=== PATIENT | female | born 1965 | race Caucasian/White ===

== ENCOUNTER 2019-11-01 01:12 | Emergency (ER) | payer BC ==
[2019-11-01 01:27] VITALS: BP 127/74
--- NOTE | 2019-11-01 04:14 | ER Document Report ---
ED Extremity Problem, Upper - General Chief Complaint: Shoulder Pain Stated Complaint: SHOULDER PAIN Time Seen by Provider: 11/01/19 02:33 Primary Care Provider: ADWOA RODRIGUEZ PA-C [Primary Care Provider] - Follow up in 3-5 days Notes: Patient is a 55-year-old female who presents the emergency department with a chief complaint of right shoulder pain. Patient states that her symptoms started this evening. States that she has had this before and was diagnosed with bursitis. States that she was treated with pain medicine and it got better. States that this was a long time ago. Patient states that she has a h istory of rheumatoid arthritis. She was told to stop her rheumatoid arthritis medication, as she has cancer and is undergoing chemotherapy. Patient has small cell lung cancer. Patient is able to move her elbow joint and move her fingers with no difficulty. Patient states that she took an oxycodone, but had little relief of her pain. TRAVEL OUTSIDE OF THE [place] IN LAST 30 DAYS: No - Related Data Allergies/Adverse Reactions: No Known Allergies Allergy (Unverified 07/07/12 12:52) Past Medical History - General Information source: Patient - Social History Smoking Status: Unknown if Ever Smoked Chew tobacco use (# tins/day): No Frequency of alcohol use: None Drug Abuse: None Family History: Reviewed & Not Pertinent Patient has homicidal ideation: No - Past Medical History Cardiac Medical History: Reports: Hx Hypertension - medicated Denies: Hx Heart Attack Pulmonary Medical History: Denies: Hx Asthma Neurological Medical History: Denies: Hx Cerebrovascular Accident, Hx Seizures GI Medical History: Denies: Hx Hepatitis, Hx Hiatal Hernia, Hx Ulcer Musculoskeletal Medical History: Reports Hx Arthritis - RA Infectious Medical History: Denies: Hx Hepatitis Past Surgical History: Denies: Hx Hysterectomy, Hx Mastectomy, Hx Open Heart Surgery, Hx Pacemaker Review of Systems - Review of Systems Notes: REVIEW OF SYSTEMS: CONSTITUTIONAL : Denies recent illness. Denies recent unintentional weight loss. Denies fever, chills, or sweats. EENT: Denies eye, ear, throat, or mouth pain, discharge, or symptoms. Denies nasal or sinus congestion. CARDIOVASCULAR: Denies chest pain. RESPIRATORY: Denies shortness of breath, cough, congestion, difficulty breathing, or wheezing. GASTROINTESTINAL: Denies nausea, vomiting, and diarrhea. Denies abdominal pain. Denies constipation. GENITOURINARY: Denies difficulty urinating, burning, blood in urine, urgency or frequency. MUSCULOSKELETAL: Denies neck and back pain. See HPI. SKIN: Denies rash, itchiness, or lesions HEMATOLOGIC : Denies easy bruising or bleeding. LYMPHATIC: Denies swollen, painful, enlarged glands. NEUROLOGICAL: Denies no numbness or tingling denies weakness. Denies headache. Denies altered mental status. Denies alteration in speech. PSYCHIATRIC: Denies stress, anxiety, alteration in sleep patterns, or depression. All other systems reviewed and negative. Physical Exam - Vital signs Vitals: Temp Pulse Resp BP Pulse Ox 98.2 F 113 H 16 127/74 H 96 11/01/19 01:25 11/01/19 01:25 11/01/19 01:25 11/01/19 01:25 11/01/19 01:25 - Notes Notes: PHYSICAL EXAMINATION: GENERAL: Appears well, healthy, well-nourished, no acute distress. HEAD: Normocephalic, atraumatic. EYES: PERRL, conjunctiva normal, all extraocular movements intact, sclera nonicteric ENT: Moist mucous membranes. NECK: Supple, no noticeable swelling, redness, rash. Normal range of motion. LUNGS: Equal breath sounds bilaterally and clear to auscultation. No wheezes rales or rhonchi. CARDIOVASCULAR: S1-S2, regular rate, regular rhythm. Radial pulses 2+, normal. ABDOMEN: Normoactive bowel sounds. Soft, nontender, no guarding, no rebound tenderness, and no masses palpated. EXTREMITIES: Decreased range of motion to right shoulder joint due to pain. NEUROLOGICAL: Moves all extremities upon command. Strength 5/5 in all ext remities. PSYCH: Normal mood, normal affect. SKIN: Warm, dry. No rash, lesions, ulcerations noted. Normal skin turgor. Course - Re-evaluation Re-evalutation: 11/01/19 05:38 Patient has mild degenerative spurring of the right acromioclavicular joint. There is no fracture. 11/01/19 06:09 Patient states that she feels better after receiving Dilaudid. I will send her home with oxycodone to help with her pain. 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 She is in agreement with this plan. Patient placed in a sling. Follow-up precautions were given. Verbal discharge instructions were given to the patient. They verbalized understanding. They are stable for discharge. - Vital Signs Vital signs: Temp Pulse Resp BP Pulse Ox 98.2 F 113 H 16 127/74 H 96 11/01/19 01:25 11/01/19 01:25 11/01/19 01:25 11/01/19 01:25 11/01/19 01:25 Discharge - Discharge Clinical Impression: Right shoulder pain Qualifiers: Chronicity: acute Qualified Code(s): M25.511 - Pain in right shoulder Condition: Stable Disposition: HOME, SELF-CARE Additional Instructions: You were seen today in the emergency department for right shoulder pain. You have some bone spurs noted on your x-ray. Use your sling to help with comfort. You can take your pain medication as prescribed. Follow-up with your primary care provider in regards to this visit. Prescriptions: Oxycodone HCl/Acetaminophen [Percocet 5-325 mg Tablet] 1 tab PO Q4H PRN #10 tablet PRN Reason: Referrals: ADWOA RODRIGUEZ PA-C [Primary Care Provider] - Follow up in 3-5 days
--- NOTE | 2019-11-01 04:20 | RADIOLOGY REPORT (SQ) ---
RIGHT SHOULDER RADIOGRAPHS: 11/01/2019 3:19 AM CDT TECHNIQUE: AP and Y views of the right shoulder were obtained. COMPARISON: None available HISTORY: 54-year old patient with right shoulder pain . FINDINGS: The visualized portions of the right hemithorax appear unremarkable. There is mild degenerative spurring at the right acromioclavicular joint. There are no findings to suggest an acute fracture of the right shoulder. The visualized portions of the right clavicle demonstrate no evidence of an acute fracture. The visualized soft tissues appear unremarkable. A right internal jugular [id number] catheter tip projects near the SVC/right atrial junction. IMPRESSION: There are no findings to suggest an acute fracture of the right shoulder.
[2019-11-01] MEDS ORDERED: KETOROLAC TROMETHAMINE 60 MG/2 ML SDV IM ONE (04:35)
[2019-11-01] MEDS ORDERED: DEXAMETHASONE SOD PHOS INJ 10 MG/1 ML VIAL IM ONE (04:36)
[2019-11-01] MEDS ORDERED: DEXAMETHASONE SOD PHOS INJ 10 MG/1 ML VIAL ONE (05:02)
[2019-11-01] MEDS ORDERED: HYDROMORPHONE HCL INJ/PF 2 MG/ML AMPULE IM ONE (05:36)
== END 2019-11-01 06:21 | disposition home or self-care (01) ==
LOC: ER 01:12
DX: M25.511 Pain in right shoulder (principal); I10 Essential (primary) hypertension
CPT/HCPCS: 99284; 96372; 73030; J1885; J1170; J1100